=== PATIENT | male | born 1955 | race Caucasian/White ===

== ENCOUNTER 2022-02-06 14:00 | Outpatient (RCR) | payer BC, SELFPAY ==
--- NOTE | 2021-11-02 15:55 | URNOTE ---
Received request for prior auth for Leuprolide ([id number]). Per Gabbi at [facility], this does not require prior authorization, effective until 03/02/2022. Call ref #[id number]
[2021-11-07 09:42] LABS: Basophils Absolute Auto 0.04 K/uL (0.00-0.30); Basophils Percent Auto 0.8 % (0.0-3.0); Eosinophils Absolute Auto 0.06 K/uL (0.00-0.50); Eosinophils Percent Auto 1.2 % (0.0-7.0); Hematocrit 37.3 % (37.0-53.0); Hemoglobin* 13.1 gm/dL (13.5-17.5); Immature Granulocytes Abs Auto 0.03 K/uL (0.00-0.30); Lymphocytes Absolute Auto 1.16 K/uL (0.90-2.90); Lymphocytes Percent Auto 24.1 % (20-44); Mean Corpuscular HGB Conc 35 gm/dL (32-36); Mean Corpuscular Hemoglobin 37 pg (26-34); Mean Corpuscular Volume 105 fL (80-100); Monocytes Percent Auto 8.7 % (0.0-11.0); Neutrophils Absolute Auto 3.11 K/uL (1.7-7.0); Neutrophils Percent Auto 64.6 % (42.0-72.0); Platelet Count* 317 K/uL (140-440); RDW Coefficient of Variation % 11.7 % (11.5-15.5); Red Blood Count 3.56 m/uL (4.30-5.90); White Blood Count* 4.82 K/uL (4.50-11.00)
[2021-11-07 09:52] LABS: Slide Review Reflex No
[2021-11-07 10:16] LABS: Albumin* 4.9 g/dL (3.3-5.0)
[2021-11-07 10:17] LABS: Chloride* 96 mmol/L (96-114); Potassium* 4.3 mmol/L (3.6-5.1); Sodium* 132 mmol/L (135-149)
[2021-11-07 10:19] LABS: Bilirubin Total* 0.5 mg/dL (0.1-1.5); Carbon Dioxide* 24 mmol/L (20-32); Estimated Glomerular Filt Rate 84 ml/min
[2021-11-07 10:20] LABS: Alanine Aminotransferase* 36 U/L (4-50); Alkaline Phosphatase* 56 U/L (40-150); Aspartate Amino Transferase* 70 U/L (12-35); Blood Urea Nitrogen* 7 mg/dL (7-30); Calcium* 9.6 mg/dL (8.4-10.6); Glucose* 92 mg/dL (60-115); Total Protein* 8.1 g/dL (6.0-8.3)
[2021-11-07 10:50] LABS: PSA Diagnostic* < 0.06 ng/mL (0.10-4.00)
--- NOTE | 2022-01-23 15:24 | ONC.NURNOTE ---
Pt called reviewing the recent letter about MD transition. Pt plans to stay here for care. He is due for 6 mo f/u ~05/2022; appt not scheduled at this time.
[2022-02-06 14:15] VITALS: BP 150/90; PULSE 72; RESP 16; TEMP 36.1; O2SAT 98
[2022-02-06 14:26] LABS: Basophils Absolute Auto 0.05 K/uL (0.00-0.30); Basophils Percent Auto 0.8 % (0.0-3.0); Eosinophils Absolute Auto 0.12 K/uL (0.00-0.50); Eosinophils Percent Auto 1.9 % (0.0-7.0); Hematocrit 37.2 % (37.0-53.0); Hemoglobin* 12.8 gm/dL (13.5-17.5); Immature Granulocytes Abs Auto 0.04 K/uL (0.00-0.30); Immature Granulocytes Pct Auto 0.6 %; Lymphocytes Percent Auto 19.5 % (20-44); Mean Corpuscular HGB Conc 34 gm/dL (32-36); Mean Corpuscular Hemoglobin 37 pg (26-34); Mean Corpuscular Volume 109 fL (80-100); Monocytes Percent Auto 8.2 % (0.0-11.0); Neutrophils Absolute Auto 4.46 K/uL (1.7-7.0); Platelet Count* 329 K/uL (140-440); RDW Coefficient of Variation % 12.4 % (11.5-15.5); Red Blood Count 3.42 m/uL (4.30-5.90); White Blood Count* 6.46 K/uL (4.50-11.00)
[2022-02-06 14:33] LABS: Slide Review Reflex No
[2022-02-06 15:20] LABS: Albumin* 5.1 g/dL (3.3-5.0)
[2022-02-06 15:21] LABS: Chloride* 101 mmol/L (96-114); Potassium* 4.3 mmol/L (3.6-5.1); Sodium* 137 mmol/L (135-149)
[2022-02-06 15:23] LABS: Alanine Aminotransferase* 33 U/L (4-50); Alkaline Phosphatase* 59 U/L (40-150); Aspartate Amino Transferase* 75 U/L (12-35); Bilirubin Total* 0.6 mg/dL (0.1-1.5); Blood Urea Nitrogen* 11 mg/dL (7-30); Carbon Dioxide* 26 mmol/L (20-32); Est. Creatinine Clearance* 77.06; Estimated Glomerular Filt Rate 84 ml/min; Glucose* 93 mg/dL (60-115); Total Protein* 8.2 g/dL (6.0-8.3)
[2022-02-06 15:24] LABS: Calcium* 9.8 mg/dL (8.4-10.6)
[2022-02-06 16:01] LABS: PSA Diagnostic* < 0.06 ng/mL (0.10-4.00)
--- NOTE | 2022-02-27 09:42 | ONC.NURNOTE ---
Labs reveiwed by Jennifer Lucero APRN and called to Vladimir by this publicity writer Reviewed upward trend in AST over past few years Vladimir denies frequent Tylenol use upon assessment he does acknowledge daily alcohol intake of multiple glasses of wine over the past few weeks he has made a effort to decrease his intake to 2 glasses of wine every 2-3 days will fax results to his PCP Dr Hernandez who he will be seeing in the near future
== END 2022-05-06 23:59 | disposition home or self-care (01) ==
LOC: CCIC 14:00
PROVIDERS: PCP Student in an Organized Health Care Education/Training Program; Referring Provider Student in an Organized Health Care Education/Training Program; Visit Provider Internal Medicine Hematology & Oncology
DX: C61 Malignant neoplasm of prostate (principal)
CPT/HCPCS: 36415; 80053; 84153; 85025; 96401; 99212; 99213; 99214; J9217

== ENCOUNTER 2022-05-13 16:40 | Emergency (ER) | payer BC, SELFPAY ==
[2022-05-13 16:50] VITALS: BP 164/92; PULSE 74; RESP 20; TEMP 36; O2SAT 99; BMI 29.3
--- NOTE | 2022-05-13 17:08 | ED.NURSE ---
EKG completed and handed to
--- NOTE | 2022-05-13 17:21 | CRLHL7_ITS ---
For Patients: As a result of the Century Cures Act, medical imaging exams and procedure reports are released immediately into your electronic medical record. You may view this report before your referring provider. If you have questions, please contact your health care provider. INDICATION: Leg pain and swelling. TECHNIQUE: Ultrasound venous duplex lower left extremity. Compression venous exam was performed using anand-scale, color Doppler, and spectral Doppler analysis. COMPARISON: None. FINDINGS: Deep veins: Sonographic imaging demonstrates the left common femoral, deep femoral, femoral, popliteal, peroneal, posterior tibial and the contralateral right common femoral veins to be fully compressible with normal color Doppler blood flow. Superficial veins: Greater saphenous vein is fully compressible. No popliteal cyst. IMPRESSION: No evidence of DVT. Dictated by Yoan Moody MD @ 05/13/2022 6:58:56 PM (Electronically Signed)
--- NOTE | 2022-05-13 17:22 | CRLHL7_ITS ---
For Patients: As a result of the Century Cures Act, medical imaging exams and procedure reports are released immediately into your electronic medical record. You may view this report before your referring provider. If you have questions, please contact your health care provider. INDICATION: Dyspnea. COMPARISON: None. TECHNIQUE: Single-view chest radiograph. FINDINGS: Normal cardiomediastinal contours. The right hemidiaphragm is mildly elevated. There are scattered bandlike opacities likely representing atelectasis or scarring. No consolidative opacity. No significant pleural effusion or pneumothorax. IMPRESSION: No acute cardiopulmonary abnormality. Dictated by Yoan Moody MD @ 05/13/2022 6:36:53 PM (Electronically Signed)
[2022-05-13 17:39] LABS: Basophils Absolute Auto 0.04 K/uL (0.00-0.30); Basophils Percent Auto 0.5 % (0.0-3.0); Eosinophils Absolute Auto 0.15 K/uL (0.00-0.50); Eosinophils Percent Auto 1.7 % (0.0-7.0); Hematocrit 39.4 % (37.0-53.0); Hemoglobin* 13.3 gm/dL (13.5-17.5); Immature Granulocytes Abs Auto 0.04 K/uL (0.00-0.30); Immature Granulocytes Pct Auto 0.5 %; Mean Corpuscular HGB Conc 34 gm/dL (32-36); Mean Corpuscular Hemoglobin 35 pg (26-34); Mean Corpuscular Volume 104 fL (80-100); Monocytes Percent Auto 9.9 % (0.0-11.0); Neutrophils Absolute Auto 6.07 K/uL (1.7-7.0); Neutrophils Percent Auto 68.4 % (42.0-72.0); Platelet Count* 302 K/uL (140-440); RDW Coefficient of Variation % 11.9 % (11.5-15.5); White Blood Count* 8.86 K/uL (4.50-11.00)
[2022-05-13 17:42] VITALS: O2SAT 97
--- NOTE | 2022-05-13 17:54 | ED.GENADULT ---
HPI - General Adult General Chief complaint: Extremity Pain/Injury, Lower Stated complaint: HCM - legs retaining fluid above knee Time Seen by Provider: 05/13/22 16:57 History of Present Illness HPI narrative: 66-year-old man presenting to the emergency department on recommendation of triage line for increasing swelling in his left lower leg but really both legs. Recent diagnosis of hypertrophic cardiomyopathy pending Cardiology follow-up at the end of the month. Did have his cardiac echo. Over the last couple of months has had increasing exertional dyspnea particularly when going up stairs. Though will also describes this more as a sense of chest pressure. At rest not in any particular discomfort or dyspnea. Has tried some pneumo boots at 1 point and mild compression stockings. Feels like this just moves the compression around. Over the last week have doubled up on Lasix to 40 mg but this has not seemed to make much of a difference. Does not have a diagnosis of heart failure. Is not noting cough or fever. Has had ultrasounds of the left lower leg in the past negative for DVT. Otherwise has had cellulitis. Now has increased though the discomfort in his lower upper leg and around the knee more than historical. History of prostate cancer. No surgeries. Is receiving hormone treatment at this point. Related Data Home Medications Medication Instructions Recorded Confirmed enzalutamide 40 mg capsule (Xtandi) 160 mg PO DAILY 11/02/21 11/07/21 hydrochlorothiazide 25 mg tablet 25 mg PO DAILY 11/02/21 11/07/21 meclizine 25 mg tablet 25 mg PO BID-TID PRN 11/02/21 11/07/21 omeprazole 40 mg capsule,delayed 40 mg PO DAILY 11/02/21 11/07/21 release tadalafil 20 mg tablet (Cialis) 20 mg PO DAILY PRN 11/02/21 11/07/21 Allergies Allergy/AdvReac Type Severity Reaction Status Date / Time No Known Drug Allergies Allergy Verified 11/02/21 15:37 Review of Systems Status of ROS: Reports: 6 or more systems reviewed and unremarkable except as noted in History and below [facility] Medical History Alcohol use disorder, moderate, dependence Cellulitis of right leg GERD (gastroesophageal reflux disease) HTN (hypertension) Hyponatremia Exam Narrative: Exam Narrative: Pleasant. NAD. Seems little slowed in communication; almost appears mildly intoxicated. Does defer sometimes to spouse who is a retired nurse to answer some questions. Breathing easily. Skin is warm and dry. Lower extremities particularly around the ankles little erythematous but without marked induration. There is some tension to the left leg and by nearly 2+ pitting edema past the knee. Scaling skin. No blisters. Similar on the right but less so and only involving the lower leg. Negative Homans. A bit tender to direct palpation though particularly on the upper left calf area. Lungs appear to be clear other than some resolving right lower lung crepitus. CV RRR. Distant. No supraclavicular crepitus. No JVD appreciated. Const: Vital Signs, click to edit/add: Vital Signs - 24 hr 05/13/22 16:50 05/13/22 17:42 Temperature 96.8 F L Pulse Rate [Pulse Oximeter] 74 Respiratory Rate 20 Blood Pressure [Le ft Upper Arm] 164/92 H Pulse Oximetry 99 97 Oxygen Delivery Me thod Room Air Documenting provider has reviewed patient's vital signs: yes Course Vital Signs Vital signs: Initial Vital Signs Temperature 96.8 F L 05/13/22 16:50 Temperature Source Temporal Artery Scan 05/13/22 16:50 Pulse Rate 74 05/13/22 16:50 Respiratory Rate 20 05/13/22 16:50 Blood Pressure 164/92 H 05/13/22 16:50 Blood Pressure Mean 116 05/13/22 16:50 Pulse Oximetry 99 05/13/22 16:50 Oxygen Delivery Method 05/13/22 16:50 Vital Signs Temperature 96.8 F L 05/13/22 16:50 Pulse Rate 74 05/13/22 16:50 Respiratory Rate 20 05/13/22 16:50 Blood Pressure 164/92 H 05/13/22 16:50 Pulse Oximetry 99 05/13/22 16:50 Oxygen Delivery Method 05/13/22 16:50 Temperature 96.8 F L 05/13/22 16:50 Pulse Rate 74 05/13/22 16:50 Respiratory Rate 20 05/13/22 16:50 Blood Pressure 164/92 H 05/13/22 16:50 Pulse Oximetry 97 05/13/22 17:42 Oxygen Delivery Method 05/13/22 16:50 Medical Decision Making MDM Narrative Medical decision making narrative: Certainly is a set up for DVT or pulmonary embolus; this has not occurred before. Incidental Malone's cyst? Possibly deconditioning. Anemia Heart failure? Doubtful pneumonia. Pneumothorax/pneumomediastinum. Does not appear to have a cellulitis at this time. Unclear etiology to his hypertrophic cardiomyopathy. Does not appear to be a family history of this. There is a history of alcohol abuse. He says he has cut down. Is this alcoholic cardiomyopathy? Have completed venous ultrasound of the left leg. Per motorcycle riding instructor is negative for DVT. One-view chest on on my read without pneumothorax or pneumomediastinum more marked cardiomegaly and without infiltrate. Radiology noting atelectatic changes. Unfortunately elevated D-dimer and this dyspnea I think warrants better chest evaluation with CTA of the chest. Concern still remains for pulmonary embolus or might visualize pericardial effusion or occult infectious process. Metastatic lesion I suppose would also be possible though has had careful surveillance. Due to CT of chest I did request 500 mL bolus of normal saline. I did review images CTA of chest. No infiltrate appreciated. Radiology over-read as below CT chest,, pelvis 05/27/2019. TECHNIQUE: CT of the chest with 95 cc of Isovue 370 IV contrast. Coronal and sagittal reconstructions. 3D post processing was performed. FINDINGS: Normal heart size. Normal caliber thoracic aorta and central pulmonary arteries. Mild coronary artery calcifications. Negative for acute pulmonary embolism. Small pericardial effusion. No thoracic lymphadenopathy. The thyroid gland is normal in appearance. No focal consolidation, pleural effusion, or pneumothorax. Mild biapical pleural scarring. Linear atelectasis or scarring in the right middle lobe, lingula, and lower lobes. No pulmonary nodule identified. No central endobronchial lesion or significant bronchial wall thickening. Elevation of the right hemidiaphragm. The visualized upper abdomen is unremarkable. Faint residual sclerotic lesion visualized in the T4 vertebral body. Other previously seen sclerotic lesions are no longer identified. IMPRESSION: 1. Negative for acute pulmonary embolism. 2. Small pericardial effusion. 3. Bibasilar atelectasis or scarring. 4. Faint residual sclerotic lesion in the T4 vertebral body. Other previously seen sclerotic lesions are no longer identified. Was stable without event in the emergency department. Very patiently waiting for supper. Did mention that takes amlodipine for high blood pressure. Perhaps this could be contributing to peripheral edema as well. I do not see otherwise signs of heart failure. Has had compression stockings and devices that does not use regularly. I suspect not regularly elevating his feet/legs either. Dispensed German wraps here from the emergency department In hind site perhaps some of this exertional dyspnea could also be related to deconditioning generally; possibly also in the setting of alcohol abuse. See patient discharge plan Lab Data Lab results reviewed: Yes I reviewed the patient's lab results Labs: Lab Results 05/13/22 05/13/22 05/13/22 Range/Units 17:33 17:33 17:33 WBC 8.86 (4.50-11.00) K/uL RBC 3.80 L (4.30-5.90) m/uL Hgb 13.3 L (13.5-17.5) gm/dL Hct 39.4 (37.0-53.0) % MCV 104 H (80-100) fL MCH 35 H (26-34) pg MCHC 34 (32-36) gm/dL RDW Coeff of Marguerite 11.9 (11.5-15.5) % Plt Count 302 (140-440) K/uL Neut % (Auto) 68.4 (42.0-72.0) % Lymph % (Auto) 19.0 L (20-44) % Bergen % (Auto) 9.9 (0.0-11.0) % Eos % (Auto) 1.7 (0.0-7.0) % Baso % (Auto) 0.5 (0.0-3.0) % Neut # (Auto) 6.07 (1.7-7.0) K/uL Lymph # (Auto) 1.70 (0.90-2.90) K/uL Bergen # (Auto) 0.90 (0.00-0.90) K/UL Eos # (Auto) 0.15 (0.00-0.50) K/uL Baso # (Auto) 0.04 (0.00-0.30) K/uL D-Dimer Quant (PE/DVT) 0.80 H (0.00-0.50) ug/ml Sodium 134 L (135-149) mmol/L Potassium 4.5 (3.6-5.1) mmol/L Chloride 99 (96-114) mmol/L Carbon Dioxide 28 (20-32) mmol/L BUN 15 (7-30) mg/dL Creatinine 1.1 (0.5-1.5) mg/dL Estimated Creat Clear 72.26 Estimated GFR 75 ml/min Glucose 107 (60-115) mg/dL Calcium 9.7 (8.4-10.6) mg/dL Total Bilirubin 0.9 (0.1-1.5) mg/dL Direct Bilirubin 0.3 (0.0-0.5) mg/dL AST 41 H (12-35) U/L ALT 20 (4-50) U/L Alkaline Phosphatase 73 (40-150) U/L Troponin I 0.01 (0.01-0.04) ng/mL C-Reactive Protein 0.5 (0.5-1.0) mg/dL NT-Pro-B Natriuret Pep 378 pg/mL Total Protein 8.7 H (6.0-8.3) g/dL Albumin 4.9 (3.3-5.0) g/dL 05/13/22 Range/Units 17:33 WBC (4.50-11.00) K/uL RBC (4.30-5.90) m/uL Hgb (13.5-17.5) gm/dL Hct (37.0-53.0) % MCV (80-100) fL MCH (26-34) pg MCHC (32-36) gm/dL RDW Coeff of Marguerite (11.5-15.5) % Plt Count (140-440) K/uL Neut % (Auto) (42.0-72.0) % Lymph % (Auto) (20-44) % Bergen % (Auto) (0.0-11.0) % Eos % (Auto) (0.0-7.0) % Baso % (Auto) (0.0-3.0) % Neut # (Auto) (1.7-7.0) K/uL Lymph # (Auto) (0.90-2.90) K/uL Bergen # (Auto) (0.00-0.90) K/UL Eos # (Auto) (0.00-0.50) K/uL Baso # (Auto) (0.00-0.30) K/uL D-Dimer Quant (PE/DVT) (0.00-0.50) ug/ml Sodium (135-149) mmol/L Potassium (3.6-5.1) mmol/L Chloride (96-114) mmol/L Carbon Dioxide (20-32) mmol/L BUN (7-30) mg/dL Creatinine (0.5-1.5) mg/dL Estimated Creat Clear Estimated GFR ml/min Glucose (60-115) mg/dL Calcium (8.4-10.6) mg/dL Total Bilirubin (0.1-1.5) mg/dL Direct Bilirubin (0.0-0.5) mg/dL AST (12-35) U/L ALT (4-50) U/L Alkaline Phosphatase (40-150) U/L Troponin I Cancelled (0.01-0.04) ng/mL C-Reactive Protein (0.5-1.0) mg/dL NT-Pro-B Natriuret Pep pg/mL Total Protein (6.0-8.3) g/dL Albumin (3.3-5.0) g/dL ECG Data Attestation: I personally reviewed and interpreted this ECG as follows: (Normal sinus with right bundle branch block. Rate of 66. some baseline irritability. No prior for comparison at this time) Discharge Plan Discharge Clinical Impression: Bilateral edema of lower extremity, Exertional dyspnea Patient Disposition: Home w/ Parent or Adult Condition: Stable Additional Instructions: You have lower extremity edema but I do not otherwise see evidence of heart failure. I would increase your Lasix to 40 mg 2 times daily over the next 5 days. Pending effect then decreased to 40 mg in the morning and 20 mg in the afternoon until your appointment with your primary later next week. Your potassium was 4.5 today. Be sure to wear compression when up and about during the day and even at night but maybe just a little bit looser. Any time you're at rest be sure to get your legs quite elevated. I guess I would leave it up to you as to what sort of compression you want to use; just use something. Enclosed is a prescription for above the knee compression stockings and fitting. Might try at [facility]. I think you take hydrochlorothiazide. This can lower sodium and sometimes potassium. Your sodium today was just a little low at 134. Yes. Amlodipine can as a side effect increase lower extremity edema. Activity Level: Activity as Tolerated Prescriptions: No Action Xtandi 40 mg capsule 160 mg PO DAILY hydrochlorothiazide 25 mg tablet 25 mg PO DAILY meclizine 25 mg tablet 25 mg PO BID-TID PRN omeprazole 40 mg capsule,delayed release(DR/EC) 40 mg PO DAILY tadalafil [Cialis] 20 mg tablet 20 mg PO DAILY PRN Rx Instructions: administer approximately 30min before sexual activity; do not use more than 1 dose per 24hrs Follow Up/Referrals: ORESTES GALDAMEZ DO [Primary Care Provider] - Stand Alone Forms: [employer] Info Instructions
[2022-05-13 18:08] LABS: Slide Review Reflex No
[2022-05-13 18:14] LABS: Albumin* 4.9 g/dL (3.3-5.0); Chloride* 99 mmol/L (96-114); Sodium* 134 mmol/L (135-149)
[2022-05-13 18:15] LABS: Potassium* 4.5 mmol/L (3.6-5.1)
[2022-05-13 18:17] LABS: Alkaline Phosphatase* 73 U/L (40-150); Aspartate Amino Transferase* 41 U/L (12-35); Bilirubin Direct* 0.3 mg/dL (0.0-0.5); Bilirubin Total* 0.9 mg/dL (0.1-1.5); Blood Urea Nitrogen* 15 mg/dL (7-30); Carbon Dioxide* 28 mmol/L (20-32); Creatinine* 1.1 mg/dL (0.5-1.5); Est. Creatinine Clearance* 72.26; Estimated Glomerular Filt Rate 75 ml/min; Total Protein* 8.7 g/dL (6.0-8.3)
[2022-05-13 18:18] LABS: Alanine Aminotransferase* 20 U/L (4-50); Calcium* 9.7 mg/dL (8.4-10.6); Glucose* 107 mg/dL (60-115)
[2022-05-13 18:20] LABS: C Reactive Protein* 0.5 mg/dL (0.5-1.0)
[2022-05-13 18:29] LABS: Troponin I* 0.01 ng/mL (0.01-0.04)
[2022-05-13 18:37] LABS: NT Pro B Type NatriureticPept* 378 pg/mL
--- NOTE | 2022-05-13 19:38 | CRLHL7_ITS ---
For Patients: As a result of the Century Cures Act, medical imaging exams and procedure reports are released immediately into your electronic medical record. You may view this report before your referring provider. If you have questions, please contact your health care provider. INDICATION: Exertional dyspnea, question PE. History of hypertrophic cardiomyopathy. History of prostate cancer. COMPARISON: CT chest,, pelvis 05/27/2019. TECHNIQUE: CT of the chest with 95 cc of Isovue 370 IV contrast. Coronal and sagittal reconstructions. 3D post processing was performed. FINDINGS: Normal heart size. Normal caliber thoracic aorta and central pulmonary arteries. Mild coronary artery calcifications. Negative for acute pulmonary embolism. Small pericardial effusion. No thoracic lymphadenopathy. The thyroid gland is normal in appearance. No focal consolidation, pleural effusion, or pneumothorax. Mild biapical pleural scarring. Linear atelectasis or scarring in the right middle lobe, lingula, and lower lobes. No pulmonary nodule identified. No central endobronchial lesion or significant bronchial wall thickening. Elevation of the right hemidiaphragm. The visualized upper abdomen is unremarkable. Faint residual sclerotic lesion visualized in the T4 vertebral body. Other previously seen sclerotic lesions are no longer identified. IMPRESSION: 1. Negative for acute pulmonary embolism. 2. Small pericardial effusion. 3. Bibasilar atelectasis or scarring. 4. Faint residual sclerotic lesion in the T4 vertebral body. Other previously seen sclerotic lesions are no longer identified. Please note that all CT scans at this facility use dose modulation, iterative reconstruction, and/or weight-based dosing when appropriate to reduce radiation dose to as low as reasonably achievable. Dictated by Ayla Trevino MD @ 05/13/2022 9:11:30 PM (Electronically Signed)
[2022-05-13] MEDS: 0.9 % SODIUM CHLORIDE 500 ML 500 ML IV (21:02)
--- NOTE | 2022-05-13 21:57 | ED.NURSE ---
Went over discharge instructions in detail with sister present in room. Pt understands his plan of care. he also states he has a followup appt with his primary health care doc in a week.
== END 2022-05-13 21:38 | disposition home or self-care (01) ==
PROVIDERS: Emergency Provider Family Medicine; PCP Student in an Organized Health Care Education/Training Program
DX: R60.0 Localized edema (principal); R06.09 Other forms of dyspnea
CPT/HCPCS: 36415; 71045; 71260; 80048; 80076; 83880; 84484; 85025; 85379; 86140; 93971; 94761; 99284; 99285; J7120; Q9967

== ENCOUNTER 2022-11-07 15:00 | Outpatient (RCR) | payer BC, SELFPAY ==
--- NOTE | 2022-05-15 09:33 | ONC.NURNOTE ---
Pt did not show up for appt this morning. Left message with pt to call and reschedule.
[2022-05-21 15:04] LABS: Basophils Absolute Auto 0.04 K/uL (0.00-0.30); Basophils Percent Auto 0.6 % (0.0-3.0); Eosinophils Absolute Auto 0.13 K/uL (0.00-0.50); Eosinophils Percent Auto 1.9 % (0.0-7.0); Hematocrit 37.9 % (37.0-53.0); Immature Granulocytes Abs Auto 0.03 K/uL (0.00-0.30); Immature Granulocytes Pct Auto 0.4 %; Lymphocytes Absolute Auto 1.66 K/uL (0.90-2.90); Lymphocytes Percent Auto 23.8 % (20-44); Mean Corpuscular HGB Conc 34 gm/dL (32-36); Mean Corpuscular Hemoglobin 35 pg (26-34); Mean Corpuscular Volume 102 fL (80-100); Monocytes Percent Auto 8.5 % (0.0-11.0); Neutrophils Absolute Auto 4.53 K/uL (1.7-7.0); Neutrophils Percent Auto 64.8 % (42.0-72.0); Platelet Count* 361 K/uL (140-440); White Blood Count* 6.98 K/uL (4.50-11.00)
[2022-05-21 15:12] LABS: Slide Review Reflex No
[2022-05-21] MEDS: LEUPROLIDE ACETATE 22.5 MG (SQ) SYRINGE SUBCUT (15:57)
[2022-05-21 15:59] VITALS: BP 143/84; PULSE 70; RESP 18; TEMP 36.5; O2SAT 96
[2022-05-21 16:27] LABS: Albumin* 4.6 g/dL (3.3-5.0); Chloride* 102 mmol/L (96-114); Sodium* 136 mmol/L (135-149)
[2022-05-21 16:29] LABS: Bilirubin Total* 0.6 mg/dL (0.1-1.5); Creatinine* 1.1 mg/dL (0.5-1.5); Estimated Glomerular Filt Rate 75 ml/min
[2022-05-21 16:30] LABS: Alanine Aminotransferase* 23 U/L (4-50); Alkaline Phosphatase* 57 U/L (40-150); Aspartate Amino Transferase* 38 U/L (12-35); Blood Urea Nitrogen* 13 mg/dL (7-30); Calcium* 9.7 mg/dL (8.4-10.6); Carbon Dioxide* 26 mmol/L (20-32); Glucose* 105 mg/dL (60-115); Potassium* 4.5 mmol/L (3.6-5.1); Total Protein* 8.2 g/dL (6.0-8.3)
[2022-05-21 17:03] LABS: PSA Diagnostic* < 0.06 ng/mL (0.10-4.00)
--- NOTE | 2022-08-21 09:03 | A.ONCPRONO_ITS ---
[facility] Provider Note Clinic Note Narrative: Care coordination: cardiology Mr. Guerrero follows at our clinic for medical management of prostate cancer. He called today to update his routine blood draw and eligard to Friday08/23/22 at 9am. He shared that there is more going on with my heart. He is scheduled to have follow up visit with Dr. Augustine Alonzo, cardiology, on 09/05/22 and repeat echocardiogram on 09/16/22. He confirms that he cut back on his xtandi to 80mg or 2-40mg tabs daily after last visit with Dr. Ryann Mtz 06/23. Blood draw and eligard rescheduled per pt request. Mr. Guerrero will be following up with Jennifer POOLE on 08/27/22 for routine 3 month follow up visit. He is aware and agreeable to this plan.
[2022-08-23 10:14] VITALS: BP 172/110; PULSE 64; RESP 18; TEMP 36.2; O2SAT 98
[2022-08-23 10:14] LABS: Basophils Absolute Auto 0.02 K/uL (0.00-0.30); Basophils Percent Auto 0.4 % (0.0-3.0); Eosinophils Absolute Auto 0.11 K/uL (0.00-0.50); Hematocrit 37.2 % (37.0-53.0); Hemoglobin* 12.8 gm/dL (13.5-17.5); Immature Granulocytes Abs Auto 0.06 K/uL (0.00-0.30); Immature Granulocytes Pct Auto 1.1 %; Lymphocytes Absolute Auto 1.33 K/uL (0.90-2.90); Lymphocytes Percent Auto 24.1 % (20-44); Mean Corpuscular HGB Conc 34 gm/dL (32-36); Mean Corpuscular Hemoglobin 36 pg (26-34); Mean Corpuscular Volume 105 fL (80-100); Monocytes Percent Auto 8.9 % (0.0-11.0); Neutrophils Absolute Auto 3.52 K/uL (1.7-7.0); Neutrophils Percent Auto 63.5 % (42.0-72.0); Platelet Count* 228 K/uL (140-440); RDW Coefficient of Variation % 12.9 % (11.5-15.5); Red Blood Count 3.54 m/uL (4.30-5.90); White Blood Count* 5.53 K/uL (4.50-11.00)
[2022-08-23] MEDS: LEUPROLIDE ACETATE 22.5 MG (SQ) SYRINGE SUBCUT (10:22)
[2022-08-23 10:28] LABS: Slide Review Reflex No
[2022-08-23 10:57] LABS: Albumin* 5.2 g/dL (3.3-5.0); Chloride* 98 mmol/L (96-114)
[2022-08-23 10:58] LABS: Potassium* 3.7 mmol/L (3.6-5.1); Sodium* 137 mmol/L (135-149)
[2022-08-23 11:00] LABS: Aspartate Amino Transferase* 38 U/L (12-35); Bilirubin Total* 0.7 mg/dL (0.1-1.5); Blood Urea Nitrogen* 15 mg/dL (7-30); Carbon Dioxide* 27 mmol/L (20-32); Creatinine* 1.3 mg/dL (0.5-1.5); Estimated Glomerular Filt Rate 61 ml/min; Total Protein* 8.5 g/dL (6.0-8.3)
[2022-08-23 11:01] LABS: Alanine Aminotransferase* 21 U/L (4-50); Alkaline Phosphatase* 54 U/L (40-150); Calcium* 10.1 mg/dL (8.4-10.6); Glucose* 91 mg/dL (60-115)
[2022-08-23 11:35] LABS: PSA Diagnostic* < 0.06 ng/mL (0.10-4.00)
== END 2022-11-17 23:59 | disposition home or self-care (01) ==
LOC: CCIC 15:00
PROVIDERS: PCP Student in an Organized Health Care Education/Training Program; Referring Provider Student in an Organized Health Care Education/Training Program; Visit Provider Internal Medicine Hematology & Oncology
DX: C61 Malignant neoplasm of prostate (principal)
CPT/HCPCS: 36415; 80053; 84153; 85025; 96401; 99202; 99212; 99213; 99214; 99215; J9217

== ENCOUNTER 2023-05-01 14:22 | Outpatient (CLI) | payer BC, SELFPAY ==
--- NOTE | 2023-05-01 14:30 | PE_ITS ---
[facility] [address] [address] Phone:?[phone] Fax:?[phone] Referring Physician Information: Ryann Mtz M.D. [address] [address] Phone:?[phone] Fax:?[phone] Patient:Rodger Guerrero D.O.B:?1955 Sex:?Male Phone:? [facility] MRN:?[id number] Exam Date:?05/01/2023 EXAM: PET/CT SCAN MID-ORBITS TO PROXIMAL THIGHS CLINICAL INFORMATION: Prostate carcinoma. TECHNICAL INFORMATION: Spiral acquisition of data was obtained from the mid orbits to the proximal thighs with reconstruction of 3.75 mm thick images at 3.[address] data was used for attenuation correction. PET scanning was performed through the same anatomic range of 52 minutes following administration of 11.16 mCi of 18-FDG delivered intravenously. The patient's glucose at the time of the injection was 82 mg/dL. PET, CT and PET/CT fusion images are interpreted using a computer viewing workstation. SUV max liver 2.95; BMI normalization method. INTERPRETATION: Head and Neck: Physiologic FDG of intracranial FDG uptake. No neck adenopathy or abnormal radiotracer uptake. Chest: No lung nodule or infiltrate. No bronchiectasis or fibrosis. No pleural or pericardial effusion. No pathologic adenopathy. Previous mediastinal adenopathy has resolved since 01/22/2019. Abdomen, Pelvis and Proximal Thighs: Hepatic steatosis. No focal liver lesion. No bile duct dilatation. The gallbladder, adrenal glands, spleen, pancreas and kidneys are unremarkable. Atherosclerotic calcification of the abdominal aorta without aneurysm. No pathologic mesenteric or retroperitoneal adenopathy. Interval resolution of extensive retroperitoneal adenopathy since 01/22/2019. No pelvic radiotracer uptake, adenopathy, mass or fluid collection. Faint T4 sclerotic lesion without radiotracer uptake. No additional osseous sclerotic lesions. CONCLUSION: 1. No disease specific FDG uptake. Negative PET/CT exam. Previous extensive retroperitoneal and mediastinal adenopathy is absent since 01/22/2019. Electronically signed on 05/02/2023 3:43:00 PM by Otto Vasques M.D.
== END 2023-05-01 14:23 | disposition home or self-care (01) ==
LOC: RAD 14:22
PROVIDERS: PCP Student in an Organized Health Care Education/Training Program; Visit Provider Internal Medicine Hematology & Oncology
DX: C61 Malignant neoplasm of prostate (principal)
CPT/HCPCS: 78815; A9552

== ENCOUNTER 2023-05-07 13:30 | Outpatient (RCR) | payer BC, SELFPAY ==
--- NOTE | 2022-12-02 12:59 | URNOTE ---
Received request for prior auth for Gagan ([id number]). Per Phyllis , this has been approved 11/18/2022-03/02/2023 auth #[id number]
[2022-12-03 13:48] LABS: Basophils Absolute Auto 0.04 K/uL (0.00-0.30); Basophils Percent Auto 0.7 % (0.0-3.0); Eosinophils Absolute Auto 0.09 K/uL (0.00-0.50); Eosinophils Percent Auto 1.5 % (0.0-7.0); Hematocrit 33.8 % (37.0-53.0); Hemoglobin* 11.7 gm/dL (13.5-17.5); Immature Granulocytes Abs Auto 0.03 K/uL (0.00-0.30); Immature Granulocytes Pct Auto 0.5 %; Lymphocytes Absolute Auto 1.18 K/uL (0.90-2.90); Mean Corpuscular HGB Conc 35 gm/dL (32-36); Mean Corpuscular Hemoglobin 37 pg (26-34); Mean Corpuscular Volume 107 fL (80-100); Monocytes Percent Auto 9.8 % (0.0-11.0); Neutrophils Absolute Auto 3.99 K/uL (1.7-7.0); Neutrophils Percent Auto 67.5 % (42.0-72.0); Platelet Count* 250 K/uL (140-440); RDW Coefficient of Variation % 12.5 % (11.5-15.5); Red Blood Count 3.15 m/uL (4.30-5.90); White Blood Count* 5.91 K/uL (4.50-11.00)
[2022-12-03 13:50] LABS: Slide Review Reflex No
[2022-12-03 14:03] LABS: Albumin* 5.3 g/dL (3.3-5.0); Chloride* 93 mmol/L (96-114)
[2022-12-03 14:04] LABS: Potassium* 4.1 mmol/L (3.6-5.1); Sodium* 135 mmol/L (135-149)
[2022-12-03 14:06] LABS: Alkaline Phosphatase* 58 U/L (40-150); Anion Gap 15 mEq/L (7-15); Aspartate Amino Transferase* 86 U/L (12-35); Bilirubin Total* 0.8 mg/dL (0.1-1.5); Blood Urea Nitrogen* 12 mg/dL (7-30); Carbon Dioxide* 27 mmol/L (20-32); Creatinine* 1.1 mg/dL (0.5-1.5); Estimated Glomerular Filt Rate 75 ml/min; Total Protein* 8.9 g/dL (6.0-8.3)
[2022-12-03 14:07] LABS: Alanine Aminotransferase* 62 U/L (4-50); Calcium* 9.9 mg/dL (8.4-10.6); Glucose* 89 mg/dL (60-115)
[2022-12-03 14:48] LABS: PSA Diagnostic* < 0.06 ng/mL (0.10-4.00)
[2022-12-03] MEDS: LEUPROLIDE ACETATE 22.5 MG (SQ) SYRINGE SUBCUT (15:18)
--- NOTE | 2022-12-17 14:09 | PC.NURSE ---
Pt called and LM asking to re-schedule his lab appt for this morning. RN attempted to call back x 3 but got no answer and VM not set up so unable to LM. SUYAPA Talbertloan broker notified.
[2022-12-26 08:51] LABS: Basophils Absolute Auto 0.04 K/uL (0.00-0.30); Basophils Percent Auto 0.7 % (0.0-3.0); Eosinophils Absolute Auto 0.12 K/uL (0.00-0.50); Eosinophils Percent Auto 2.1 % (0.0-7.0); Hematocrit 33.3 % (37.0-53.0); Hemoglobin* 11.5 gm/dL (13.5-17.5); Immature Granulocytes Abs Auto 0.05 K/uL (0.00-0.30); Immature Granulocytes Pct Auto 0.9 %; Lymphocytes Absolute Auto 1.36 K/uL (0.90-2.90); Lymphocytes Percent Auto 23.8 % (20-44); Mean Corpuscular HGB Conc 35 gm/dL (32-36); Mean Corpuscular Hemoglobin 38 pg (26-34); Mean Corpuscular Volume 109 fL (80-100); Monocytes Percent Auto 9.6 % (0.0-11.0); Neutrophils Percent Auto 62.9 % (42.0-72.0); Platelet Count* 234 K/uL (140-440); RDW Coefficient of Variation % 12.5 % (11.5-15.5); Red Blood Count 3.05 m/uL (4.30-5.90); Slide Review Reflex No; White Blood Count* 5.72 K/uL (4.50-11.00)
[2022-12-26 09:05] LABS: Chloride* 96 mmol/L (96-114); Sodium* 135 mmol/L (135-149)
[2022-12-26 09:06] LABS: Potassium* 3.7 mmol/L (3.6-5.1)
[2022-12-26 09:08] LABS: Alanine Aminotransferase* 66 U/L (4-50); Alkaline Phosphatase* 55 U/L (40-150); Anion Gap 16 mEq/L (7-15); Aspartate Amino Transferase* 96 U/L (12-35); Bilirubin Total* 0.6 mg/dL (0.1-1.5); Blood Urea Nitrogen* 15 mg/dL (7-30); Carbon Dioxide* 23 mmol/L (20-32); Estimated Glomerular Filt Rate 84 ml/min; Glucose* 93 mg/dL (60-115); Total Protein* 8.4 g/dL (6.0-8.3)
[2022-12-26 09:49] LABS: PSA Diagnostic* < 0.06 ng/mL (0.10-4.00)
[2022-12-26 09:57] LABS: Vitamin B12* 312 pg/mL (243-894)
[2022-12-27 21:06] LABS: Folate, Serum 8.4 ng/mL (>=5.9)
[2022-12-29 11:06] LABS: Albumin 5.21 g/dL (3.75-5.01); Alpha 1 Globulin 0.18 g/dL (0.19-0.46); Alpha 2 Globulin 0.55 g/dL (0.48-1.05); Total Protein, Serum 7.8 g/dL (6.3-8.2)
--- NOTE | 2023-02-26 16:02 | ONC.NURNOTE ---
Pt did not show up for lab appt today. LM to reschedule for later this week for results to be back prior to [facility] appt next Fri.
[2023-02-28 09:26] LABS: Basophils Absolute Auto 0.06 K/uL (0.00-0.30); Eosinophils Absolute Auto 0.14 K/uL (0.00-0.50); Eosinophils Percent Auto 2.2 % (0.0-7.0); Hematocrit 37.9 % (37.0-53.0); Hemoglobin* 12.9 gm/dL (13.5-17.5); Immature Granulocytes Abs Auto 0.05 K/uL (0.00-0.30); Immature Granulocytes Pct Auto 0.8 %; Lymphocytes Percent Auto 18.9 % (20-44); Mean Corpuscular HGB Conc 34 gm/dL (32-36); Mean Corpuscular Hemoglobin 38 pg (26-34); Mean Corpuscular Volume 112 fL (80-100); Neutrophils Absolute Auto 4.13 K/uL (1.7-7.0); Neutrophils Percent Auto 66.1 % (42.0-72.0); Platelet Count* 190 K/uL (140-440); RDW Coefficient of Variation % 12.2 % (11.5-15.5); Red Blood Count 3.39 m/uL (4.30-5.90); White Blood Count* 6.25 K/uL (4.50-11.00)
[2023-02-28 09:30] LABS: Slide Review Reflex No
[2023-02-28 09:36] LABS: Albumin* 5.5 g/dL (3.3-5.0); Chloride* 94 mmol/L (96-114); Potassium* 4.3 mmol/L (3.6-5.1); Sodium* 133 mmol/L (135-149)
[2023-02-28 09:39] LABS: Alanine Aminotransferase* 104 U/L (4-50); Alkaline Phosphatase* 69 U/L (40-150); Anion Gap 8 mEq/L (7-15); Aspartate Amino Transferase* 112 U/L (12-35); Bilirubin Total* 1.4 mg/dL (0.1-1.5); Blood Urea Nitrogen* 18 mg/dL (7-30); Carbon Dioxide* 31 mmol/L (20-32); Creatinine* 1.4 mg/dL (0.5-1.5); Estimated Glomerular Filt Rate 56 ml/min; Glucose* 107 mg/dL (60-115); Total Protein* 9.3 g/dL (6.0-8.3)
[2023-02-28 09:40] LABS: Calcium* 10.1 mg/dL (8.4-10.6)
[2023-02-28 10:14] LABS: PSA Diagnostic* < 0.06 ng/mL (0.10-4.00)
[2023-02-28 10:33] LABS: Free T4 Free Thyroxine* 0.27 ng/dL (0.70-1.85)
[2023-03-01 16:26] LABS: Free T3 1.5 pg/mL (2.5-4.3)
--- NOTE | 2023-03-04 07:04 | URNOTE ---
Received request for prior authorization for Gagan ([id number]). Per Phyllis CHAPARRO Rep Zeinab Chun, Gagan has been approved 03/05/2023 to 02/04/2024, Auth#[id number].
[2023-03-05 12:30] LABS: Free T4 Free Thyroxine* 0.32 ng/dL (0.70-1.85)
[2023-03-05 12:54] LABS: Vitamin B12* 499 pg/mL (243-894)
[2023-03-07 14:55] VITALS: BP 109/72; PULSE 67; RESP 16; TEMP 36.3; O2SAT 95
[2023-03-07] MEDS: LEUPROLIDE ACETATE 22.5 MG (SQ) SYRINGE SUBCUT (15:11)
--- NOTE | 2023-03-07 15:56 | ONC.NURNOTE ---
LEONEL faxed to Rad Onc with Eligard 22.5mg SC given today.
[2023-03-08 02:22] LABS: Albumin 5.38 g/dL (3.75-5.01); Alpha 1 Globulin 0.14 g/dL (0.19-0.46); Immunofixation IFE Done; Immunoglobulin A 198 mg/dL (68-408); Immunoglobulin G 1166 mg/dL (768-1632); Immunoglobulin M 249 mg/dL (35-263); Kappa Qnt Free Light Chains 32.49 mg/L (3.30-19.40); Kappa/Lambda Light Chain Ratio 1.75 (0.26-1.65); Lambda Qnt Free Light Chains 18.53 mg/L (5.71-26.30)
[2023-04-01 14:27] LABS: Albumin* 5.2 g/dL (3.3-5.0)
[2023-04-01 14:29] LABS: Bilirubin Direct* 0.2 mg/dL (0.0-0.5); Bilirubin Total* 0.8 mg/dL (0.1-1.5)
[2023-04-01 14:30] LABS: Alanine Aminotransferase* 105 U/L (4-50); Alkaline Phosphatase* 67 U/L (40-150); Aspartate Amino Transferase* 150 U/L (12-35); Total Protein* 8.8 g/dL (6.0-8.3)
[2023-04-01 19:05] LABS: Free T4 Free Thyroxine* 0.69 ng/dL (0.70-1.85)
--- NOTE | 2023-04-09 13:51 | ONC.NURNOTE ---
PET scheduled: Patient scheduled for PET scan on @ 330. Per clinic, RN, patient was told of this date and time at last appointment. Order and documentation sent to [facility] today.
[2023-04-10 10:57] LABS: Albumin* 5.1 g/dL (3.3-5.0)
[2023-04-10 10:59] LABS: Bilirubin Direct* 0.3 mg/dL (0.0-0.5); Bilirubin Total* 0.5 mg/dL (0.1-1.5)
[2023-04-10 11:00] LABS: Alanine Aminotransferase* 119 U/L (4-50); Alkaline Phosphatase* 74 U/L (40-150); Aspartate Amino Transferase* 175 U/L (12-35); Total Protein* 8.1 g/dL (6.0-8.3)
[2023-04-10 11:32] LABS: Hepatitis B Surface Antigen* Negative (Negative)
[2023-04-10 11:43] LABS: HIV 1/2/P24 Combo Screen* Negative (Negative)
[2023-04-10 11:50] LABS: Hepatitis C Virus Antibody* Negative (Negative)
[2023-04-11 14:15] LABS: Hepatitis B Core Antibodies Negative (Negative)
[2023-04-11 16:10] LABS: Kappa Qnt Free Light Chains 34.68 mg/L (3.30-19.40); Kappa-Lambda Qt FLC W/ Ratio 1.79 (0.26-1.65); Lambda Qnt Free Light Chains 19.37 mg/L (5.71-26.30)
[2023-05-02 10:38] LABS: Basophils Absolute Auto 0.05 K/uL (0.00-0.30); Basophils Percent Auto 0.8 % (0.0-3.0); Eosinophils Absolute Auto 0.08 K/uL (0.00-0.50); Eosinophils Percent Auto 1.3 % (0.0-7.0); Hematocrit 37.4 % (37.0-53.0); Hemoglobin* 12.8 gm/dL (13.5-17.5); Immature Granulocytes Abs Auto 0.02 K/uL (0.00-0.30); Immature Granulocytes Pct Auto 0.3 %; Lymphocytes Absolute Auto 1.68 K/uL (0.90-2.90); Lymphocytes Percent Auto 27.1 % (20-44); Mean Corpuscular HGB Conc 34 gm/dL (32-36); Mean Corpuscular Hemoglobin 36 pg (26-34); Mean Corpuscular Volume 106 fL (80-100); Monocytes Percent Auto 7.7 % (0.0-11.0); Neutrophils Absolute Auto 3.89 K/uL (1.7-7.0); Neutrophils Percent Auto 62.8 % (42.0-72.0); Platelet Count* 303 K/uL (140-440); RDW Coefficient of Variation % 11.8 % (11.5-15.5); Red Blood Count 3.54 m/uL (4.30-5.90)
[2023-05-02 10:40] LABS: Slide Review Reflex No
[2023-05-02 11:09] LABS: Albumin* 5.1 g/dL (3.3-5.0); Chloride* 95 mmol/L (96-114); Sodium* 135 mmol/L (135-149)
[2023-05-02 11:10] LABS: Potassium* 4.1 mmol/L (3.6-5.1)
[2023-05-02 11:12] LABS: Alanine Aminotransferase* 105 U/L (4-50); Alkaline Phosphatase* 83 U/L (40-150); Anion Gap 16 mEq/L (7-15); Aspartate Amino Transferase* 146 U/L (12-35); Bilirubin Total* 0.7 mg/dL (0.1-1.5); Blood Urea Nitrogen* 18 mg/dL (7-30); Calcium* 9.9 mg/dL (8.4-10.6); Carbon Dioxide* 24 mmol/L (20-32); Creatinine* 1.1 mg/dL (0.5-1.5); Estimated Glomerular Filt Rate 75 ml/min; Glucose* 87 mg/dL (60-115)
[2023-05-02 11:46] LABS: PSA Diagnostic* < 0.06 ng/mL (0.10-4.00)
== END 2023-06-01 23:59 | disposition home or self-care (01) ==
LOC: CCIC 13:30
PROVIDERS: Clinical Nurse Specialist; PCP Student in an Organized Health Care Education/Training Program; Referring Provider Student in an Organized Health Care Education/Training Program; Visit Provider Internal Medicine Hematology & Oncology
DX: C61 Malignant neoplasm of prostate (principal); E03.9 Hypothyroidism, unspecified; E53.8 Deficiency of other specified B group vitamins; R23.2 Flushing; I42.9 Cardiomyopathy, unspecified
CPT/HCPCS: 36415; 80053; 80076; 82607; 82746; 82784; 83520; 84153; 84155; 84165; 84439; 84443; 84481; 85025; 86334; 86703; 86704; 86803; 87340; 96401; 99211; 99212; 99214; 99215; 99441; 99442; G0463; J9217

== ENCOUNTER 2023-07-14 11:49 | Emergency (ER) | payer BC, SELFPAY ==
[2023-07-14] VITALS (24 sets, daily range): BP systolic 150–199; BP diastolic 113–145; PULSE 76–91; RESP 16–18; TEMP 36.3; O2SAT 95–99; BMI 27.9
[2023-07-14 12:47] LABS: Lactate* 1.7 mmol/L (0.5-1.9)
[2023-07-14 12:50] LABS: Basophils Absolute Auto 0.04 K/uL (0.00-0.30); Basophils Percent Auto 0.5 % (0.0-3.0); Hematocrit 39.8 % (37.0-53.0); Hemoglobin* 13.8 gm/dL (13.5-17.5); Immature Granulocytes Abs Auto 0.05 K/uL (0.00-0.30); Immature Granulocytes Pct Auto 0.6 %; Lymphocytes Percent Auto 8.1 % (20-44); Mean Corpuscular HGB Conc 35 gm/dL (32-36); Mean Corpuscular Hemoglobin 36 pg (26-34); Mean Corpuscular Volume 105 fL (80-100); Monocytes Percent Auto 8.2 % (0.0-11.0); Neutrophils Percent Auto 82.6 % (42.0-72.0); Platelet Count* 339 K/uL (140-440); RDW Coefficient of Variation % 12.5 % (11.5-15.5); Red Blood Count 3.81 m/uL (4.30-5.90); White Blood Count* 8.01 K/uL (4.50-11.00)
[2023-07-14 12:51] LABS: Slide Review Reflex No
[2023-07-14] MEDS: LORazepam 2 MG/ML inj 1 MG IVP ×2 (12:55→14:10)
[2023-07-14] MEDS: 0.9 % SODIUM CHLORIDE 1000 ml 1,000 ML IV (12:55)
[2023-07-14 13:02] LABS: Albumin* 5.1 g/dL (3.3-5.0)
[2023-07-14 13:03] LABS: Chloride* 97 mmol/L (96-114); Potassium* 4.5 mmol/L (3.6-5.1); Sodium* 134 mmol/L (135-149)
[2023-07-14 13:05] LABS: Anion Gap 9 mEq/L (7-15); Aspartate Amino Transferase* 100 U/L (12-35); Bilirubin Direct* 0.2 mg/dL (0.0-0.5); Carbon Dioxide* 28 mmol/L (20-32); Creatinine* 0.8 mg/dL (0.5-1.5); Est. Creatinine Clearance* 78.44; Estimated Glomerular Filt Rate 98 ml/min; INR 0.89 (0.91-1.10); Partial Thromboplastin Time* 32 Seconds (23-33); Prothrombin Time 12.6 Seconds; Total Protein* 8.9 g/dL (6.0-8.3)
[2023-07-14 13:06] LABS: Troponin, Point-of-Care* 0.01 ng/ml (0.01-0.04)
[2023-07-14 13:06] LABS: Alanine Aminotransferase* 60 U/L (4-50); Alkaline Phosphatase* 97 U/L (40-150); Blood Urea Nitrogen* 10 mg/dL (7-30); Calcium* 10.4 mg/dL (8.4-10.6); Glucose* 133 mg/dL (60-115)
[2023-07-14 13:11] LABS: Appearance Urine Clear (Clear); Bilirubin Urine Negative (Negative); Blood Urine Trace-lysed (Negative); Color Urine Yellow (Yellow); Glucose Urine Negative (Negative); Ketones Urine 1+ (Negative); Leukocyte Esterase Urine Negative (Negative); Nitrite Urine Negative (Negative); Protein Urine 3+ (Negative); Urobilinogen Urine 0.2 (0.2-1.0)
[2023-07-14 13:15] LABS: Ethanol* < 0.01 % (0.01-0.03); NT Pro B Type NatriureticPept* 797 pg/mL
[2023-07-14 13:18] LABS: Amphetamine Screen Urine Negative (Negative); Barbiturate Screen Urine Negative (Negative); Benzodiazepines Screen Urine Negative (Negative); Cannabinoid Screen Urine Negative (Negative); Cocaine Screen Urine Negative (Negative); Methadone Screen Urine Negative (Negative); Methamphetamines Screen Urine Negative (Negative); Opiate Screen Urine Negative (Negative); Oxycodone Screen Urine Negative (Negative); Phencyclidine Screen Urine Negative (Negative); Tricyclic Antidepressant Urine Negative (Negative)
[2023-07-14 13:23] LABS: RBC Urine 0-2 (0-2); WBC Urine 0-2 (0-5)
[2023-07-14 13:24] LABS: Phosphorus* 3.6 mg/dL (2.5-4.5)
[2023-07-14 13:24] LABS: Squamous Epithelial Cell Urine Few (None-Few)
[2023-07-14 13:25] LABS: Magnesium* 1.9 mg/dL (1.5-2.6)
[2023-07-14 13:27] LABS: PCR FLU A Negative PCR FLU A (Negative); PCR FLU B Negative PCR FLU B (Negative); PCR RSV Negative PCR RSV (Negative); SARS PCR* Negative SARS-CoV-2 (Negative)
--- NOTE | 2023-07-14 14:07 | CT_ITS ---
Patient: MAYTE BUSTAMANTE Facility:?[facility] Patient ID:?[id number] Site Patient ID:?[id number]. Site :?[id number] Study:?CT-Head WITHOUT-07/14/2023 2:38:51 PM Ordering Physician:?DR. HANDLEY Final Report: INDICATION: Headache and dizziness TECHNIQUE: CT head without contrast. COMPARISON: None. FINDINGS: CSF spaces: Within normal limits for age. Brain parenchyma: The anand-white differentiation is normal. No sign of mass, hemorrhage, or midline shift. Mild cerebral atrophy. Skull base and calvarium: Atherosclerotic calcification. Mild mucosal thickening paranasal sinuses. The visualized orbits are grossly unremarkable. No skull fractures. IMPRESSION: 1. No intracranial bleed or mass effect. 2. Mild cerebral atrophy. Please note that all CT scans at this facility use dose modulation, iterative reconstruction, and/or weight-based dosing when appropriate to reduce radiation dose to as low as reasonably achievable. Dictated by Sheng Melo MD @ 07/14/2023 3:02:25 PM Signed by:?Sheng Melo MD @07/14/2023 3:02:25 PM (Electronic Signature)
--- NOTE | 2023-07-14 15:11 | ED_ITS ---
HPI - General Adult General Date Seen: 07/14/23 Chief complaint: Nausea/Vomiting Stated complaint: nausea,vomiting Time Seen by Provider: 07/14/23 12:19 Source: patient and family Mode of arrival: ambulatory Limitations: no limitations History of Present Illness HPI narrative: Nausea and vomiting that started after eating at a restaurant on Friday. Has taken Zofran this morning, did not alleviate symptoms. Noticed having a high BP when this started. Is on BP medication, still taking this regularly. Has fatigue that started over the last week. Is having an increase in levothyroxine med. No pain. Unable to keep food/fluids down. Stage 4 prostate cancer Patient is a very nice gentleman who I am seeing in room 2, he has a history of high blood pressure overnight, along with a headache, he has had nausea vomiting, for the last 48 hours and really inability to keep fluids food or fluids down. He also drinks approximately half a bottle to a bottle of vodka a day. He has done this for 40+ years. He has been unable to drink alcohol in the last 48 hours history in the past 2 of prostate cancer and treatment for this denies any visual changes any chest pain associated with this. Just a headache around his entire head, he has vomited approximately 20 times. No history of fevers chills, there is no dysuria frequency denies any abdominal pain. No rashes noted. No numbness tingling weakness in his hands or his feet, no diarrhea Related Data Home Medications Medication Instructions Recorded Confirmed ondansetron 4 mg disintegrating 4 mg PO Q8H PRN 11/15/22 07/14/23 tablet enzalutamide 40 mg capsule (Xtandi) 120 mg PO DAILY 03/05/23 07/14/23 furosemide 20 mg tablet 20 mg PO DAILY 07/14/23 07/14/23 levothyroxine 112 mcg tablet 112 mcg PO DAILY 07/14/23 07/14/23 valsartan 40 mg tablet mg PO 07/14/23 07/14/23 Previous Rx's Medication Instructions Recorded mecobalamin (vitamin B12) 1,000 1,000 mcg PO QDAY #90 tabs 12/03/22 mcg chewable tablet clonidine HCl 0.1 mg tablet 0.1 mg PO BID #60 tabs 07/14/23 lorazepam 1 mg tablet (Ativan) 0.5 mg (1/2 x 1 mg) PO BID-TID PRN 07/14/23 #14 tabs Allergies Allergy/AdvReac Type Severity Reaction Status Date / Time metoprolol Allergy Severe Hypotension Verified 07/14/23 12:04 [facility] Medical History Hyponatremia ?E87.1 - Hypo-osmolality and hyponatremia (ICD-10) Alcohol use disorder, moderate, dependence ?F10.20 - Alcohol dependence, uncomplicated (ICD-10) GERD (gastroesophageal reflux disease) ?K21.9 - Gastro-esophageal reflux disease without esophagitis (ICD-10) HTN (hypertension) ?I10 - Essential (primary) hypertension (ICD-10) Cellulitis of right leg ?L03.115 - Cellulitis of right lower limb (ICD-10) Social History Smoking Status: Former smoker How often do you have a drink containing alcohol: 4 or more times a week How many standard drinks containing alcohol do you have on a typical day: 10 or more How often do you have six or more drinks on one occasion: Daily or almost daily AUDIT-C Alcohol total score: 12 Non-prescribed substance use: denies use Exam Narrative: Exam Narrative: Patient is seen in room 2, he is alert oriented speaking to me normally, he is hypertensive. Pupils are equal round reactive to light there is no scleral icterus redness he has no nystagmus is TMs are normal oropharynx normal his neck is supple full range of motion, chest is good air entry bilaterally with no wheezing crackles noted his heart sounds are normal, no clicks murmurs or gallops his abdomen is soft obese no guarding is noted bowel sounds are normal he moves all extremities independently and well. Does have some minimal to moderate tremors noted bilaterally. He does have very clara cheeks with telangiectasias Const: Vital Signs, click to edit/add: Vital Signs - 24 hr 07/14/23 11:57 07/14/23 12:16 07/14/23 12:17 Temperature 97.3 F L Pulse Rate 90 90 Pulse Rate [Right Pulse Oximeter] 89 Respiratory Rate 18 Blood Pressure 191/145 H 189/129 H Blood Pressure [Ri ght Upper Arm] 199/134 H Pulse Oximetry 97 98 98 Oxygen Delivery Me thod Room Air 07/14/23 12:22 07/14/23 12:30 07/14/23 12:33 Temperature Pulse Rate 88 89 91 Pulse Rate [Right Pulse Oximeter] Respiratory Rate Blood Pressure 195/117 H Blood Pressure [Ri ght Upper Arm] Pulse Oximetry 97 97 99 Oxygen Delivery Me thod 07/14/23 12:36 07/14/23 12:45 07/14/23 13:00 Temperature Pulse Rate 85 84 Pulse Rate [Right Pulse Oximeter] Respiratory Rate Blood Pressure Blood Pressure [Ri ght Upper Arm] Pulse Oximetry 98 96 97 Oxygen Delivery Me thod 07/14/23 13:02 07/14/23 13:15 07/14/23 13:30 Temperature Pulse Rate 87 80 87 Pulse Rate [Right Pulse Oximeter] Respiratory Rate Blood Pressure 186/113 H Blood Pressure [Ri ght Upper Arm] Pulse Oximetry 98 97 96 Oxygen Delivery Me thod 07/14/23 13:33 07/14/23 13:45 07/14/23 14:00 Temperature Pulse Rate 83 82 83 Pulse Rate [Right Pulse Oximeter] Respiratory Rate Blood Pressure 195/121 H Blood Pressure [Ri ght Upper Arm] Pulse Oximetry 97 97 96 Oxygen Delivery Me thod 07/14/23 14:00 07/14/23 14:02 07/14/23 14:15 Temperature Pulse Rate 85 86 Pulse Rate [Right Pulse Oximeter] Respiratory Rate 16 Blood Pressure 185/119 H Blood Pressure [Ri ght Upper Arm] Pulse Oximetry 97 97 Oxygen Delivery Me thod 07/14/23 14:32 07/14/23 14:45 07/14/23 14:46 Temperature Pulse Rate 84 84 84 Pulse Rate [Right Pulse Oximeter] Respiratory Rate Blood Pressure 176/115 H Blood Pressure [Ri ght Upper Arm] Pulse Oximetry 98 98 98 Oxygen Delivery Me thod 07/14/23 14:47 07/14/23 16:00 07/14/23 16:16 Temperature Pulse Rate 85 Pulse Rate [Right Pulse Oximeter] Respiratory Rate 16 Blood Pressure 150/121 H Blood Pressure [Ri ght Upper Arm] Pulse Oximetry 98 Oxygen Delivery Me thod 07/14/23 17:24 Temperature Pulse Rate Pulse Rate [Right Pulse Oximeter] 76 Respiratory Rate 16 Blood Pressure Blood Pressure [Ri ght Upper Arm] Pulse Oximetry 95 Oxygen Delivery Me thod Room Air Documenting provider has reviewed patient's vital signs: yes Course Course ED Course: Patient improved with the treatment. Blood pressure is better, trop is negative and his withdrawl is better. We had a long talk on the condition, and his need to decreased or abstain from alcohol and follow up to see if the addition of the clonidine will help the hypertension. The good news is the clonidine can help the addiction also. We talked about worsening and when to follow up in the ER. Vital Signs Vital signs: Initial Vital Signs Temperature 97.3 F L 07/14/23 11:57 Temperature Source Temporal Artery Scan 07/14/23 11:57 Pulse Rate 89 07/14/23 11:57 Pulse Rhythm Regular 07/14/23 11:57 Respiratory Rate 18 07/14/23 11:57 Blood Pressure 199/134 H 07/14/23 11:57 Blood Pressure Mean 155 H 07/14/23 11:57 Blood Pressure Position Semi-Fowlers 07/14/23 11:57 Pulse Oximetry 97 07/14/23 11:57 Oxygen Delivery Method Room Air 07/14/23 11:57 Vital Signs Temperature 97.3 F L 07/14/23 11:57 Pulse Rate 89 07/14/23 11:57 Respiratory Rate 18 07/14/23 11:57 Blood Pressure 199/134 H 07/14/23 11:57 Pulse Oximetry 97 07/14/23 11:57 Oxygen Delivery Method Room Air 07/14/23 11:57 Temperature 97.3 F L 07/14/23 11:57 Pulse Rate 76 07/14/23 17:24 Respiratory Rate 16 07/14/23 17:24 Blood Pressure 150/121 H 07/14/23 16:16 Pulse Oximetry 95 07/14/23 17:24 Oxygen Delivery Method Room Air 07/14/23 17:24 Medications Administered Medications: Discontinued Medications Generic Name Dose Route Start Last Admin Trade Name Ainsley PRN Reason Stop Dose Admin Clonidine HCl 0.1 mg 07/14/23 15:10 07/14/23 15:36 Clonidine Hcl 0.1 Mg Tablet PO 07/14/23 15:11 0.1 mg ONCE ONE Administration Folic Acid 1 mg 07/14/23 12:38 07/14/23 13:10 Folic Acid 1 Mg Tablet PO 07/14/23 12:39 Not Given ONCE ONE Sodium Chloride 1,000 mls @ 1,000 mls/hr 07/14/23 12:45 07/14/23 14:44 0.9 % Sodium Chloride 1000 Ml IV 07/14/23 13:44 Infused .Q1H SIGIFREDO Infusion Folic Acid 1 mg/ Multivitamins 1,011.2 mls @ 252.8 mls/hr 07/14/23 13:15 07/14/23 14:45 10 ml/ Thiamine HCl 100 mg/ IV 07/14/23 17:14 Infused Sodium Chloride .Q4H SIGIFREDO Infusion Lorazepam 1 mg 07/14/23 12:37 07/14/23 12:55 Lorazepam 2 Mg/Ml Inj IVP 07/14/23 12:38 1 mg ONCE ONE Administration Lorazepam 1 mg 07/14/23 14:06 07/14/23 14:10 Lorazepam 2 Mg/Ml Inj IVP 07/14/23 14:07 1 mg ONCE ONE Administration Thiamine HCl 100 mg 07/14/23 12:37 07/14/23 13:09 Thiamine 100 Mg Tablet PO 07/14/23 12:38 Not Given ONCE ONE Medical Decision Making MDM Narrative Medical decision making narrative: Life-threatening differential diagnosis include subarachnoid hemorrhage, meningitis, encephalitis, carbon monoxide poisoning, and intracerebral hemorrhage. Other differential diagnosis include but not limited to migraine, cluster headache, tension headache, TIE LAYER vasculitis, mass lesion, temporal arteritis, click acute closed angle glaucoma, septal and trigeminal neuralgia, sinusitis, closed head injury, and stroke I do believe a lot of his issues arise from his alcohol withdrawal over the last 24-48 hours, along with the vomiting, and feeling the way he did. I will do a head CT, we will give him IV fluids along with a banana bag, given his alcohol intake. I will also give him some Ativan, Medical Records Medical records reviewed: Yes I reviewed the patient's medical records Lab Data Lab results reviewed: Yes I reviewed the patient's lab results Labs: Lab Results 07/14/23 07/14/23 07/14/23 Range/Units 12:20 12:37 12:45 WBC 8.01 (4.50-11.00) K/uL RBC 3.81 L (4.30-5.90) m/uL Hgb 13.8 (13.5-17.5) gm/dL Hct 39.8 (37.0-53.0) % MCV 105 H (80-100) fL MCH 36 H (26-34) pg MCHC 35 (32-36) gm/dL RDW Coeff of Marguerite 12.5 (11.5-15.5) % Plt Count 339 (140-440) K/uL Neut % (Auto) 82.6 H (42.0-72.0) % Lymph % (Auto) 8.1 L (20-44) % Petroleum % (Auto) 8.2 (0.0-11.0) % Eos % (Auto) 0.0 (0.0-7.0) % Baso % (Auto) 0.5 (0.0-3.0) % Neut # (Auto) 6.60 (1.7-7.0) K/uL Lymph # (Auto) 0.60 L (0.90-2.90) K/uL Petroleum # (Auto) 0.70 (0.00-0.90) K/UL Eos # (Auto) 0.00 (0.00-0.50) K/uL Baso # (Auto) 0.04 (0.00-0.30) K/uL Abs Immat Gran (auto) 0.05 (0.00-0.30) K/uL Imm/Tot Granulo (auto) 0.6 % INR 0.89 L (0.91-1.10) APTT 32 (23-33) Seconds Sodium 134 L (135-149) mmol/L Potassium 4.5 (3.6-5.1) mmol/L Chloride 97 (96-114) mmol/L Carbon Dioxide 28 (20-32) mmol/L Anion Gap 9 (7-15) mEq/L BUN 10 (7-30) mg/dL Creatinine 0.8 (0.5-1.5) mg/dL Estimated Creat Clear 78.44 Estimated GFR 98 ml/min Glucose 133 H (60-115) mg/dL Lactate 1.7 (0.5-1.9) mmol/L Calcium 10.4 (8.4-10.6) mg/dL Phosphorus 3.6 (2.5-4.5) mg/dL Magnesium 1.9 (1.5-2.6) mg/dL Total Bilirubin 1.0 (0.1-1.5) mg/dL Direct Bilirubin 0.2 (0.0-0.5) mg/dL AST 100 H (12-35) U/L ALT 60 H (4-50) U/L Alkaline Phosphatase 97 (40-150) U/L NT-Pro-B Natriuret Pep 797 pg/mL Total Protein 8.9 H (6.0-8.3) g/dL Albumin 5.1 H (3.3-5.0) g/dL Urine Color Yellow (Yellow) Urine Appearance Clear (Clear) Urine pH 7.0 (5.0-8.5) Ur Specific [place] 1.020 (1.000-1.030) Urine Protein 3+ A (Negative) Urine Glucose (UA) Negative (Negative) Urine Ketones 1+ A (Negative) Urine Blood Trace-lysed A (Negative) Urine Nitrite Negative (Negative) Urine Bilirubin Negative (Negative) Urine Urobilinogen 0.2 (0.2-1.0) Ur Leukocyte Esterase Negative (Negative) Urine RBC 0-2 (0-2) Urine WBC 0-2 (0-5) Ur Squamous Epith Cells Few (None-Few) Urine Bacteria None (None) Urine Opiates Screen Negative (Negative) Ur Oxycodone Screen Negative (Negative) Urine Methadone Screen Negative (Negative) Ur Barbiturates Screen Negative (Negative) U Tricyclic Antidepress Negative (Negative) Ur Phencyclidine Scrn Negative (Negative) Ur Amphetamines Screen Negative (Negative) U Methamphetamines Scrn Negative (Negative) U Benzodiazepines Scrn Negative (Negative) Urine Cocaine Screen Negative (Negative) U Marijuana (THC) Screen Negative (Negative) Ur Drug Screen Comment See Note Ethyl Alcohol < 0.01 L (0.01-0.03) % SARS-CoV-2 (PCR) Negative SARS-CoV-2 (Negative) Influenza Type A (PCR) Negative PCR FLU A (Negative) Influenza Type B (PCR) Negative PCR FLU B (Negative) RSV (PCR) Negative PCR RSV (Negative) POC Troponin I 0.01 (0.01-0.04) ng/ml 07/14/23 Range/Units 16:26 WBC (4.50-11.00) K/uL RBC (4.30-5.90) m/uL Hgb (13.5-17.5) gm/dL Hct (37.0-53.0) % MCV (80-100) fL MCH (26-34) pg MCHC (32-36) gm/dL RDW Coeff of Marguerite (11.5-15.5) % Plt Count (140-440) K/uL Neut % (Auto) (42.0-72.0) % Lymph % (Auto) (20-44) % Petroleum % (Auto) (0.0-11.0) % Eos % (Auto) (0.0-7.0) % Baso % (Auto) (0.0-3.0) % Neut # (Auto) (1.7-7.0) K/uL Lymph # (Auto) (0.90-2.90) K/uL Petroleum # (Auto) (0.00-0.90) K/UL Eos # (Auto) (0.00-0.50) K/uL Baso # (Auto) (0.00-0.30) K/uL Abs Immat Gran (auto) (0.00-0.30) K/uL Imm/Tot Granulo (auto) % INR (0.91-1.10) APTT (23-33) Seconds Sodium (135-149) mmol/L Potassium (3.6-5.1) mmol/L Chloride (96-114) mmol/L Carbon Dioxide (20-32) mmol/L Anion Gap (7-15) mEq/L BUN (7-30) mg/dL Creatinine (0.5-1.5) mg/dL Estimated Creat Clear Estimated GFR ml/min Glucose (60-115) mg/dL Lactate (0.5-1.9) mmol/L Calcium (8.4-10.6) mg/dL Phosphorus (2.5-4.5) mg/dL Magnesium (1.5-2.6) mg/dL Total Bilirubin (0.1-1.5) mg/dL Direct Bilirubin (0.0-0.5) mg/dL AST (12-35) U/L ALT (4-50) U/L Alkaline Phosphatase (40-150) U/L NT-Pro-B Natriuret Pep pg/mL Total Protein (6.0-8.3) g/dL Albumin (3.3-5.0) g/dL Urine Color (Yellow) Urine Appearance (Clear) Urine pH (5.0-8.5) Ur Specific [place] (1.000-1.030) Urine Protein (Negative) Urine Glucose (UA) (Negative) Urine Ketones (Negative) Urine Blood (Negative) Urine Nitrite (Negative) Urine Bilirubin (Negative) Urine Urobilinogen (0.2-1.0) Ur Leukocyte Esterase (Negative) Urine RBC (0-2) Urine WBC (0-5) Ur Squamous Epith Cells (None-Few) Urine Bacteria (None) Urine Opiates Screen (Negative) Ur Oxycodone Screen (Negative) Urine Methadone Screen (Negative) Ur Barbiturates Screen (Negative) U Tricyclic Antidepress (Negative) Ur Phencyclidine Scrn (Negative) Ur Amphetamines Screen (Negative) U Methamphetamines Scrn (Negative) U Benzodiazepines Scrn (Negative) Urine Cocaine Screen (Negative) U Marijuana (THC) Screen (Negative) Ur Drug Screen Comment Ethyl Alcohol (0.01-0.03) % SARS-CoV-2 (PCR) (Negative) Influenza Type A (PCR) (Negative) Influenza Type B (PCR) (Negative) RSV (PCR) (Negative) POC Troponin I 0.00 L (0.01-0.04) ng/ml Imaging Data CT scan - head: Attestation: I have reviewed the pertinent imaging results. My impression: negative head CT ECG Data Attestation: I personally reviewed and interpreted this ECG as follows: Prior ECG tracings: not available for review Interpretation: EKG shows no acute changes. Discharge Plan Discharge Clinical Impression: Alcohol abuse with withdrawal, Headache, Hypertension, Acute alcoholic hepatitis Patient Disposition: Home w/ Parent or Adult Condition: Stable Instructions: Abuse of Alcohol (DC), At-Risk Alcohol Use (ED), Acute Headache (ED), Chronic Hypertension (DC), Alcohol Withdrawal (ED), Hypertensive Crisis (ED), Alcoholic Hepatitis (ED) Additional Instructions: Home rest please use the Ativan, to decrease her alcohol intake. Follow-up with her regular physician and discuss this, there is good ways to the slow down and not drink as much, I can tell there has been some damage already with the elevation of your liver test to suggest that there was alcohol impacting her liver. This is called alcoholic hepatitis. This also could drive your blood pressure up in give you headache, although I believe this was more of a combination of your hypertension along with the above. May also been to do with the dehydration in the bug that you got. I do think using the clonidine, is a good idea for the next week or so, I recommend you follow-up with your regular physician to get this checked. Within the next 3-5 days. Return here if increasing nausea vomiting headache returns, localizing symptoms such as numbness tingling or weakness in the hands and the feet. Activity Level: Light activity Discharge Diet: Regular Prescriptions: New clonidine HCl 0.1 mg tablet 0.1 mg PO BID Qty: 60 0RF lorazepam [Ativan] 1 mg tablet 0.5 mg PO BID-TID PRNQty: 14 0RF No Action ondansetron 4 mg tablet,disintegrating 4 mg PO Q8H PRN mecobalamin (vitamin B12) 1,000 mcg tablet,chewable 1,000 mcg PO QDAY Qty: 90 3RF Xtandi 40 mg capsule 120 mg PO DAILY levothyroxine 112 mcg tablet 112 mcg PO DAILY furosemide 20 mg tablet 20 mg PO DAILY valsartan 40 mg tablet PO Follow Up/Referrals: ORESTES GALDAMEZ DO [Primary Care Provider] - Stand Alone Forms: [employer] Info Instructions
[2023-07-14] MEDS: cloNIDine HCL 0.1 MG TABLET PO (15:36)
== END 2023-07-14 17:25 | disposition home or self-care (01) ==
PROVIDERS: Emergency Provider Family Medicine; PCP Student in an Organized Health Care Education/Training Program
DX: F10.139 Alcohol abuse with withdrawal, unspecified (principal); K70.10 Alcoholic hepatitis without ascites; I10 Essential (primary) hypertension; R51.9 Headache, unspecified
CPT/HCPCS: 36415; 70450; 80048; 80076; 80306; 81001; 82077; 83605; 83735; 83880; 84100; 84484; 85025; 85610; 85730; 87631; 93005; 94761; 96374; 96376; 99284; 99285; J2060; J3411; J7030

== ENCOUNTER 2024-01-28 13:15 | Outpatient (RCR) | payer BC, OTHER, SELFPAY ==
[2023-08-12 09:02] LABS: Basophils Absolute Auto 0.09 K/uL (0.00-0.30); Basophils Percent Auto 1.3 % (0.0-3.0); Eosinophils Absolute Auto 0.09 K/uL (0.00-0.50); Eosinophils Percent Auto 1.3 % (0.0-7.0); Hemoglobin* 12.5 gm/dL (13.5-17.5); Immature Granulocytes Abs Auto 0.03 K/uL (0.00-0.30); Immature Granulocytes Pct Auto 0.4 %; Lymphocytes Absolute Auto 1.68 K/uL (0.90-2.90); Mean Corpuscular HGB Conc 35 gm/dL (32-36); Mean Corpuscular Hemoglobin 36 pg (26-34); Mean Corpuscular Volume 104 fL (80-100); Monocytes Percent Auto 8.5 % (0.0-11.0); Neutrophils Absolute Auto 4.25 K/uL (1.7-7.0); Neutrophils Percent Auto 63.5 % (42.0-72.0); Platelet Count* 275 K/uL (140-440); RDW Coefficient of Variation % 12.4 % (11.5-15.5); Red Blood Count 3.47 m/uL (4.30-5.90); White Blood Count* 6.71 K/uL (4.50-11.00)
[2023-08-12 09:07] LABS: Slide Review Reflex No
[2023-08-12 09:14] LABS: Albumin* 5.3 g/dL (3.3-5.0)
[2023-08-12 09:15] LABS: Chloride* 94 mmol/L (96-114); Potassium* 4.7 mmol/L (3.6-5.1); Sodium* 130 mmol/L (135-149)
[2023-08-12 09:17] LABS: Anion Gap 11 mEq/L (7-15); Aspartate Amino Transferase* 105 U/L (12-35); Bilirubin Total* 0.7 mg/dL (0.1-1.5); Carbon Dioxide* 25 mmol/L (20-32); Creatinine* 0.7 mg/dL (0.5-1.5); Estimated Glomerular Filt Rate 102 ml/min; Total Protein* 8.3 g/dL (6.0-8.3)
[2023-08-12 09:18] LABS: Alanine Aminotransferase* 65 U/L (4-50); Alkaline Phosphatase* 79 U/L (40-150); Blood Urea Nitrogen* 8 mg/dL (7-30); Calcium* 9.4 mg/dL (8.4-10.6); Glucose* 96 mg/dL (60-115)
[2023-08-12 09:57] LABS: PSA Diagnostic* < 0.06 ng/mL (0.10-4.00)
[2023-08-13 18:53] LABS: Kappa Qnt Free Light Chains 25.62 mg/L (3.30-19.40); Kappa-Lambda Qt FLC W/ Ratio 1.16 (0.26-1.65); Lambda Qnt Free Light Chains 22.06 mg/L (5.71-26.30)
[2023-09-15 11:45] LABS: PSA Diagnostic* < 0.06 ng/mL (0.10-4.00)
--- NOTE | 2023-09-15 13:16 | ONC.NURNOTE ---
Patient called this afternoon asking for his PSA results. He is reporting he is having a hard time accessing it in his portal. RN read results of PSA <0.06 to patient. Patient was appreciative of the information.
--- NOTE | 2023-10-14 13:07 | PC.NURSE ---
Called pt and LM re: missed lab appt. Invited pt to call back and reschedule.
[2023-10-21 09:18] LABS: PSA Diagnostic* < 0.06 ng/mL (0.10-4.00)
[2023-11-18 10:07] LABS: PSA Diagnostic* < 0.06 ng/mL (0.10-4.00)
[2023-11-21 04:42] LABS: Testosterone, Adult Male 34 ng/dL (300-720)
[2024-01-28 14:25] LABS: PSA Diagnostic* < 0.06 ng/mL (0.10-4.00)
[2024-01-30 21:45] LABS: Testosterone, Adult Male 33 ng/dL (300-720)
== END 2024-02-08 23:59 | disposition home or self-care (01) ==
LOC: CCIC 13:15
PROVIDERS: PCP Student in an Organized Health Care Education/Training Program; Referring Provider Student in an Organized Health Care Education/Training Program; Visit Provider Internal Medicine Hematology & Oncology
DX: C61 Malignant neoplasm of prostate (principal); R63.8 Other symptoms and signs concerning food and fluid intake
CPT/HCPCS: 36415; 80053; 83520; 84153; 84403; 85025; 99214; G0463

== ENCOUNTER 2024-06-07 11:00 | Outpatient (RCR) | payer MEDICARE, OTHER, SELFPAY ==
[2024-04-05 10:34] LABS: Chloride* 93 mmol/L (96-114); Potassium* 4.7 mmol/L (3.6-5.1); Sodium* 131 mmol/L (135-149)
[2024-04-05 10:36] LABS: Creatinine* 1.1 mg/dL (0.5-1.5); Est. Creatinine Clearance* 68.21; Estimated Glomerular Filt Rate 74 ml/min
[2024-04-05 10:37] LABS: Alanine Aminotransferase* 103 U/L (4-50); Alkaline Phosphatase* 80 U/L (40-150); Anion Gap 10 mEq/L (7-15); Aspartate Amino Transferase* 102 U/L (12-35); Bilirubin Total* 0.9 mg/dL (0.1-1.5); Blood Urea Nitrogen* 17 mg/dL (7-30); Calcium* 10.2 mg/dL (8.4-10.6); Carbon Dioxide* 28 mmol/L (20-32); Glucose* 121 mg/dL (60-115); Total Protein* 8.5 g/dL (6.0-8.3)
[2024-04-05 10:42] LABS: Basophils Absolute Auto 0.04 K/uL (0.00-0.30); Basophils Percent Auto 0.5 % (0.0-3.0); Eosinophils Absolute Auto 0.19 K/uL (0.00-0.50); Eosinophils Percent Auto 2.3 % (0.0-7.0); Hemoglobin* 12.6 gm/dL (13.5-17.5); Immature Granulocytes Abs Auto 0.02 K/uL (0.00-0.30); Immature Granulocytes Pct Auto 0.2 %; Lymphocytes Percent Auto 16.4 % (20-44); Mean Corpuscular HGB Conc 34 gm/dL (32-36); Mean Corpuscular Hemoglobin 36 pg (26-34); Mean Corpuscular Volume 107 fL (80-100); Monocytes Percent Auto 8.9 % (0.0-11.0); Neutrophils Absolute Auto 5.79 K/uL (1.7-7.0); Neutrophils Percent Auto 71.7 % (42.0-72.0); Platelet Count* 330 K/uL (140-440); RDW Coefficient of Variation % 12.1 % (11.5-15.5); Red Blood Count 3.47 m/uL (4.30-5.90); White Blood Count* 8.09 K/uL (4.50-11.00)
[2024-04-05 10:45] LABS: Slide Review Reflex No
[2024-04-05 11:15] LABS: PSA Diagnostic* < 0.06 ng/mL (0.10-4.00)
--- NOTE | 2024-04-05 16:04 | ONC.NURNOTE ---
Addendum entered by Kaylyn Schreiber RN 04/07/24 14:01: Labs reviewed by Dr. Mtz. Pt instructed to return to [facility] in 1 month for lab recheck. Pt scheduled and verbalized understanding. Original Note: Lab results: Mr. Guerrero called to find out the results of his CBC, CMP, PSA and Testosterone today. Butcherette reviewed with him that CBC is WNL. Sodium is 131 - was 130 at last draw. He reports he was told it was ok to take in table salt and denies swollen ankles or SOB. Potassium is 4.7 - normal. Creatinine is 1.1 - within his normal range, but higher than last time. BUN 17 - normal. AST 102 - elevated and same as last draw. ALT 103 - doubled from last draw. He reports it may be due to alcohol consumption. He has also been taking ES tylenol due to cold symptoms recently. PSA <0.06. Testosterone is still pending. Writter informed Mr. Guerrero that we will have Dr. Mtz review the labs and see if she has other recommendations, such as rechecking his LFTs. Otherwise he would RTC in 3 months for repeat lab work. Pt was also encouraged to decrease alcohol consumption and if tylenol is needed for cold related symptoms, try taking just 1- extra strength tylenol, instead of 2. Mr. Guerrero is agreeable to this plan.
[2024-04-07 03:32] LABS: Testosterone, Adult Male 31 ng/dL (300-720)
[2024-05-12 09:14] LABS: Basophils Absolute Auto 0.03 K/uL (0.00-0.30); Basophils Percent Auto 0.5 % (0.0-3.0); Eosinophils Absolute Auto 0.26 K/uL (0.00-0.50); Eosinophils Percent Auto 4.5 % (0.0-7.0); Hematocrit 37.7 % (37.0-53.0); Hemoglobin* 12.7 gm/dL (13.5-17.5); Immature Granulocytes Abs Auto 0.04 K/uL (0.00-0.30); Immature Granulocytes Pct Auto 0.7 %; Lymphocytes Percent Auto 40.1 % (20-44); Mean Corpuscular HGB Conc 34 gm/dL (32-36); Mean Corpuscular Hemoglobin 35 pg (26-34); Mean Corpuscular Volume 105 fL (80-100); Monocytes Percent Auto 7.8 % (0.0-11.0); Neutrophils Absolute Auto 2.66 K/uL (1.7-7.0); Neutrophils Percent Auto 46.4 % (42.0-72.0); Platelet Count* 285 K/uL (140-440); RDW Coefficient of Variation % 11.6 % (11.5-15.5); White Blood Count* 5.74 K/uL (4.50-11.00)
[2024-05-12 09:18] LABS: Slide Review Reflex No
[2024-05-12 09:26] LABS: Albumin* 4.7 g/dL (3.3-5.0); Chloride* 103 mmol/L (96-114); Potassium* 4.5 mmol/L (3.6-5.1); Sodium* 140 mmol/L (135-149)
[2024-05-12 09:28] LABS: Blood Urea Nitrogen* 7 mg/dL (7-30); Est. Creatinine Clearance* 75.03; Estimated Glomerular Filt Rate 83 ml/min
[2024-05-12 09:29] LABS: Alanine Aminotransferase* 89 U/L (4-50); Alkaline Phosphatase* 61 U/L (40-150); Anion Gap 12 mEq/L (7-15); Aspartate Amino Transferase* 125 U/L (12-35); Bilirubin Total* 0.3 mg/dL (0.1-1.5); Calcium* 9.8 mg/dL (8.4-10.6); Carbon Dioxide* 25 mmol/L (20-32); Glucose* 91 mg/dL (60-115)
[2024-05-12 10:01] LABS: PSA Diagnostic* < 0.06 ng/mL (0.10-4.00)
--- NOTE | 2024-05-12 14:33 | ONC.NURNOTE ---
ongoing elevation of transaminases noted Dr Mtz requests labs be sent to Dr Hernandez- faxed to [phone] results called to Vladimir
[2024-05-14 01:29] LABS: Testosterone, Adult Male 53 ng/dL (300-720)
--- NOTE | 2024-06-07 15:47 | ONC.NURNOTE ---
Patient was a no show today for labs. RN called patient to reschedule. No answer. LVM for patient to call back to schedule.
== END 2024-08-08 23:59 | disposition home or self-care (01) ==
LOC: CCIC 11:00
PROVIDERS: PCP Student in an Organized Health Care Education/Training Program; Referring Provider Student in an Organized Health Care Education/Training Program; Visit Provider Internal Medicine Hematology & Oncology
DX: C61 Malignant neoplasm of prostate (principal); R63.8 Other symptoms and signs concerning food and fluid intake
CPT/HCPCS: 36415; 80053; 84153; 84403; 85025; 99213; 99214; G0463